=== PATIENT | male | born 2000 | race Caucasian/White ===

== ENCOUNTER 2020-05-02 02:27 | Inpatient (IN) ==
--- NOTE | 2020-05-02 02:50 | Emergency Department Note ---
Impression & Plan Suicidal ideation, Depression ED Provider Note Name: RAFAEL VILLEGAS Age: 19 Sex: M Arrives Via: Walk-In Informant: Patient, Mother ED Provider: Ruddy Aguayo MD Chief Complaint: Suicidal Ideation Impression: Suicidal Ideation Depression Medical Decision Makin yr old male with history Ulcerative Colitis with acute suicidal ideation in setting of depression set off by seeing ex girlfriend. Initially without reported plan but admits to case management he has plan. He looks well andappears a bit intoxicated though ETOH negative and suspect this was more him being very sad/crying and upset than intoxicated. He is awake, alert oriented on exams. labs otherwise with some mild hyponatremia which I suspect is from him chugging water earlier as he doesn't recall ever having that before. After discussion with myself and case management his mother and he feel comfortable with hospitalization and he was accepted to [address] [place] [address] for further management. Prior Medical Record and Triage/Nursing Notes reviewed by Me Differentials: amongst other pathologies. Vital Signs: reviewed and remarkable for no significant abnormalities Interventions: none Labs:Reviewed and remarkable for mild hyponatremia Consults:mental health case management - psychiatric hospitalization Plan: Disposition:Hospitalization. Condition: Good Blood pressure:Normal.No Referral necessary Prescriptions:none PDMP: n/a History of Present Illness:19 yr old male with history anxiety, depression, and Ulcerative Colitis arrives for evaluation of suicidal ideation. Patient from [facility] and got back to [employer] [facility] [employer] [facility] where he is student 2 nights ago. This afternoon was drinking alcohol and smoking marijuana when he saw his ex girlfriend. This caused acute depression and sadness. As night went on he started having suicidal thoughts. No plan other than to just run away. Denies any attempt at harming self. Came to ED because he was very sad and worried he may harm himself. No previous suicidal attempts. Denies family suicide history. No medications prior to arrival. Nothing makes better, seeing girlfriend makes worse. ROS: See above HPI for pertinent positives & negatives. A total of 10 systems reviewed and were otherwise negative. Past Medical History:Ulcerative colitis, depression, anxiety Past Surgical History:None Family History:Denies medical issues Social History:[employer] [facility] Student, ETOH occasionally, Previous tobacco/nicotine, occasional marijuana Home Medications:Mesalamine Allergies:knda Vitals:Blood Pressure: 129/74, Pulse 82, RR 19, T 36.6C, O2 96% on RA Physical Exam: GENERAL: Patient is sad appearing and in minimal distress. Slightly intoxicated EYES: No scleral icterus, unremarkable pupils. ENT: Mucous membranes moist, no nasal congestion. NECK: No masses appreciated, nomeningismus, trachea is midline. RESPIRATORY: No dyspnea. Clear to auscultation and equal bilaterally. No wheeze, no rhonchi. CARDIOVASCULAR: Regular rate and rhythm.No murmurs, rubs, gallops appreciated. GASTROINTESTINAL: Abdomen soft, non-tender, no peritonitis.Bowel sounds positive.No masses appreciated. BACK: No midline tenderness, no CVA tenderness EXTREMITIES: Normal motion all extremities, no cyanosis, no edema. NEUROLOGIC: Alert and oriented, no acute motor or sensory deficits, no focal weakness, cranial nerves grossly intact. SKIN: No rash, no jaundice, no diaphoresis. PSYCH: Sad, crying, depressed, admits suicidal thoughts without plan GCS: 15 ED Course: Times/Reassessments: stable Ruddy Aguayo MD Past Med/Surg History Social History Smoking Status: Current some day smoker Tobacco Type: E-cigarettes / Vaping Feels Safe at Home: Yes Allergies Allergies Allergy/AdvReac Type Severity Reaction Status Date / Time No Known Allergies Allergy Unverified 05/02/20 02:50 Results & Data (ED) Vital Signs Vital Signs - 24 hr 05/02/20 02:31 Temperature 36.6 C Temperature Source Oral Pulse Rate 82 Respiratory Rate 19 Blood Pressure 129/74 Blood Pressure Mean 92 Pulse Oximetry 96 Sepsis Recent Fever Within 48 Hours No Sepsis New/Unexplained Change in Mental Status N/A Sepsis Action Taken by Nursing No Action Required Laboratory Data Result diagrams: 05/02/20 03:13 05/02/20 03:13 Lab Results 05/02/20 05/02/20 05/02/20 Range/Units 02:38 02:38 03:13 WBC 11.25 H (4.8-10.8) K/uL RBC 4.35 L (4.7-6.1) M/uL Hgb 13.0 L (14.0-18.0) g/dL Hct 38.0 L (42-52) % MCV 87.4 (80-100) fL MCH 29.9 (25-34) pg MCHC 34.2 (32-36) g/dL RDW Std Deviation 42.3 (36.4-46.3) fL RDW Coeff of Nichole 13.1 (11.5-14.5) % Plt Count 218 (130-400) K/uL MPV 10.3 (7.4-10.4) fL Immature Gran % (Auto) 0.2 % Neut % (Auto) 85.4 % Lymph % (Auto) 9.8 % [place] % (Auto) 4.5 % Eos % (Auto) 0.0 % Baso % (Auto) 0.1 % Neut # (Auto) 9.61 H (1.4-6.5) K/uL Lymph # (Auto) 1.10 L (1.2-3.4) K/uL [place] # (Auto) 0.51 (0.11-0.59) K/uL Eos # (Auto) 0.00 (0-0.5) K/uL Baso # (Auto) 0.01 (0-0.2) K/uL Immature Gran # (Auto) 0.02 (0.00-0.02) K/uL Sodium (136-145) mmol/L Potassium (3.5-5.1) mmol/L Chloride (98-107) mmol/L Carbon Dioxide (21-32) mmol/L Anion Gap (3-11) BUN (7-18) mg/dl Creatinine (0.6-1.4) mg/dl Est Cr Clr Drug Dosing ml/min Est GFR ( Amer) Est GFR (Non-Af Amer) BUN/Creatinine Ratio (10-20) Glucose (70-99) mg/dl Calcium (8.5-10.1) mg/dl Total Bilirubin (0.2-1) mg/dl AST (15-37) U/L ALT (12-78) U/L Alkaline Phosphatase (45-117) U/L Total Protein (6.4-8.2) gm/dl Albumin (3.4-5.0) gm/dl Globulin (2.5-4.0) gm/dl Albumin/Globulin Ratio (0.9-2) TSH (0.300-4.500) uIu/ml Urine Color Yellow Urine Appearance Clear (Clear) Urine pH 5.0 (4.5-7.5) Ur Specific [place] 1.023 (1.000-1.030) Urine Protein Negative (Negative) Urine Glucose (UA) Negative (Negative) Urine Ketones Trace H (Negative) Urine Blood Negative (Negative) Urine Nitrite Negative (Negative) Urine Bilirubin Negative (Negative) Urine Urobilinogen Negative (Negative) Ur Leukocyte Esterase Negative (Negative) Salicylates (2.8-20) mg/dl Urine Opiates Screen Neg (Neg) Ur Methadone, Qual Neg (Neg) Acetaminophen (10-30) ug/ml Urine Barbiturates Neg (Neg) Ur Phencyclidine (PCP) Neg (Neg) U Amphetamin/Meth Scrn Neg (Neg) MDMA (Ecstasy) Screen Neg (Neg) U Benzodiazepines Scrn Neg (Neg) Ur Cocaine Metabolite Neg (Neg) U Marijuana (THC) Screen Neg (Neg) Ethyl Alcohol mg/dL (0-3) mg/dl 05/02/20 05/02/20 05/02/20 Range/Units 03:13 03:13 03:13 WBC (4.8-10.8) K/uL RBC (4.7-6.1) M/uL Hgb (14.0-18.0) g/dL Hct (42-52) % MCV (80-100) fL MCH (25-34) pg MCHC (32-36) g/dL RDW Std Deviation (36.4-46.3) fL RDW Coeff of Nichole (11.5-14.5) % Plt Count (130-400) K/uL MPV (7.4-10.4) fL Immature Gran % (Auto) % Neut % (Auto) % Lymph % (Auto) % [place] % (Auto) % Eos % (Auto) % Baso % (Auto) % Neut # (Auto) (1.4-6.5) K/uL Lymph # (Auto) (1.2-3.4) K/uL [place] # (Auto) (0.11-0.59) K/uL Eos # (Auto) (0-0.5) K/uL Baso # (Auto) (0-0.2) K/uL Immature Gran # (Auto) (0.00-0.02) K/uL Sodium 128 L (136-145) mmol/L Potassium 3.4 L (3.5-5.1) mmol/L Chloride 96 L (98-107) mmol/L Carbon Dioxide 24 (21-32) mmol/L Anion Gap 8.0 (3-11) BUN 14 (7-18) mg/dl Creatinine 0.82 (0.6-1.4) mg/dl Est Cr Clr Drug Dosing 129.5 ml/min Est GFR ( Amer) 147.5 Est GFR (Non-Af Amer) 127.3 BUN/Creatinine Ratio 17.3 (10-20) Glucose 102 H (70-99) mg/dl Calcium 8.5 (8.5-10.1) mg/dl Total Bilirubin 0.7 (0.2-1) mg/dl AST 30 (15-37) U/L ALT 34 (12-78) U/L Alkaline Phosphatase 117 (45-117) U/L Total Protein 7.5 (6.4-8.2) gm/dl Albumin 4.0 (3.4-5.0) gm/dl Globulin 3.5 (2.5-4.0) gm/dl Albumin/Globulin Ratio 1.1 (0.9-2) TSH 1.230 (0.300-4.500) uIu/ml Urine Color Urine Appearance (Clear) Urine pH (4.5-7.5) Ur Specific [place] (1.000-1.030) Urine Protein (Negative) Urine Glucose (UA) (Negative) Urine Ketones (Negative) Urine Blood (Negative) Urine Nitrite (Negative) Urine Bilirubin (Negative) Urine Urobilinogen (Negative) Ur Leukocyte Esterase (Negative) Salicylates < 1.7 L (2.8-20) mg/dl Urine Opiates Screen (Neg) Ur Methadone, Qual (Neg) Acetaminophen < 2 L (10-30) ug/ml Urine Barbiturates (Neg) Ur Phencyclidine (PCP) (Neg) U Amphetamin/Meth Scrn (Neg) MDMA (Ecstasy) Screen (Neg) U Benzodiazepines Scrn (Neg) Ur Cocaine Metabolite (Neg) U Marijuana (THC) Screen (Neg) Ethyl Alcohol mg/dL < 3.0 (0-3) mg/dl Discharge Plan Visit Data Chief Complaint: Mental Health Evaluation Stated Complaint: MENTAL HEALTH ED Provider: Ruddy Aguayo Discharge Problem: Suicidal ideation, Depression Patient Disposition: Admitted As Inpatient Discharge Instructions Interventions: ED Discharge Assessment Last Done: 05/02/20 06:37 Discharge Problem: Depression Qualifiers: Depression Type: reactive depression Qualified Code(s): F32.9 - Major depressive disorder, single episode, unspecified
[2020-05-02 03:12] LABS: Appearance Urine Clear (Clear); Bilirubin Urine Negative (Negative); Blood Urine Negative (Negative); Color Urine Yellow; Glucose Urine UA Negative (Negative); Ketones Urine Trace (Negative); Leukocyte Esterase Urine Negative (Negative); Nitrite Urine Negative (Negative); Protein Urine Negative (Negative); Specific Gravity Urine 1.023 (1.000-1.030); Urobilinogen Urine Negative (Negative)
[2020-05-02 03:37] LABS: Basophils # (auto) 0.01 K/uL (0-0.2); Basophils % (auto) 0.1 %; Immature Granulocytes # (auto) 0.02 K/uL (0.00-0.02); Immature Granulocytes % (auto) 0.2 %; Lymphocytes % (auto) 9.8 %; Mean Corpuscular Hemoglobin 29.9 pg (25-34); Mean Corpuscular Hgb Conc 34.2 g/dL (32-36); Mean Corpuscular Volume 87.4 fL (80-100); Mean Platelet Volume 10.3 fL (7.4-10.4); Monocytes # (auto) 0.51 K/uL (0.11-0.59); Monocytes % (auto) 4.5 %; Neutrophils # (auto) 9.61 K/uL (1.4-6.5); Neutrophils % (auto) 85.4 %; Platelet Count 218 K/uL (130-400); RDW Coefficient of Variation 13.1 % (11.5-14.5); RDW Standard Deviation 42.3 fL (36.4-46.3); Red Blood Count 4.35 M/uL (4.7-6.1); White Blood Count 11.25 K/uL (4.8-10.8)
[2020-05-02 03:56] LABS: BUN Creatinine Ratio 17.3 (10-20); Calcium 8.5 mg/dl (8.5-10.1); Creatinine Clr Calc Pharmacy 129.5 ml/min; Est GFR (African American) 147.5; Est GFR (Non-African American) 127.3; Potassium 3.4 mmol/L (3.5-5.1)
[2020-05-02 03:58] LABS: Amphetamines+Metham, Urine Neg (Neg); Barbiturates, Urine Neg (Neg); Benzodiazepine, Urine Neg (Neg); Cocaine, Urine Neg (Neg); MDMA (Ecstacy), Urine Neg (Neg); Methadone, Urine Neg (Neg); Opiate, Urine Neg (Neg); Phencyclidine, Urine Neg (Neg)
[2020-05-02 04:06] LABS: Albumin Globulin Ratio 1.1 (0.9-2); Bilirubin,Total 0.7 mg/dl (0.2-1); Globulin 3.5 gm/dl (2.5-4.0); Thyroid Stimulating Hormone 1.23 uIu/ml (0.300-4.500); Total Protein 7.5 gm/dl (6.4-8.2)
[2020-05-02 04:07] LABS: Acetaminophen < 2 ug/ml (10-30)
[2020-05-02 04:08] LABS: Salicylate < 1.7 mg/dl (2.8-20)
[2020-05-02] MEDS ORDERED: ALUMINUM/MAGNESIUM SUSP 30 ML UDC PO PRN (06:01)
[2020-05-02] MEDS ORDERED: ACETAMINOPHEN 325 MG TAB PO PRN (06:01)
[2020-05-02] MEDS ORDERED: SODIUM CHLORIDE 0.65% NA SOLN 45 ML (OCEAN) PRN (06:01)
[2020-05-02] MEDS ORDERED: MAGNESIUM HYDROXIDE SUSP 30 ML UDC PO PRN (06:01)
[2020-05-02] MEDS ORDERED: BISMUTH SUBSALICYLATE PER ML OMNICELL CHARGE PO PRN (06:01)
--- NOTE | 2020-05-02 12:33 | History & Physical ---
Date of Service May 02, 2020 Impression / Recommendations Impression 19 yo male with a history of depressed mood "on and off" for months, adjustment issues on return to campus due to social anxiety and Covid fears (doesn't want to make grandparents sick) culminating in binge drinking triggered by interaction with ex-girlfriend. He reportedly drank a large volume of water, seemingly to negate tox results, prior to coming to ED for SI with plan. (1) Depression: The patient was admitted to the [facility] ([facility] unit) on q15 min checks (behavioral with suicide precautions) for safety. The patient will participate in group, recreational, and milieu therapies and will be offered additional individual and family sessions as clinically appropriate. Patient states he is willing to consider outpatient therapy services but "I don't want to take pills". Depression Type: reactive depression Qualified Code(s): F32.9 - Major depressive disorder, single episode, unspecified (2) Hyponatremia: doubt true psychogenic polydipsia as not persistent, repeat sodium this pm and monitor for need for fluid restriction. (3) Ulcerative (chronic) enterocolitis: continue home sulfasalazine regimen Risk Factors Assessment Do You Have Access To A Gun?: No Protective Factors Assessment Employed: No Psychiatric History Identifying Data RAFAEL VILLEGAS is a 19-year-old , U go from [facility] [employer]) who just returned to campus to live with roommates, no formal psych hx, and was admitted on 05/02/20 06:01 on a 201 voluntary commitment for SI. Chief Complaint "I went out with my friends thinking I could handle seeing my ex-girlfriend but I went to a dark place". History of Present Illness Horace states that he started to have passive SI while intoxicated, can't quantify how much he drank, progressed to plan to stab or cut himself. He feels like he can behave "impulsively" when upset, when asked to elaborate his example was "giving up on a class when I probably could have pulled a decent grade". He admittedly over-thinks things and has chronic self-deprecating thoughts. He expresses social anxiety, the constant feeling that he doesn't fit in or that others are judging him. He doesn't feel as close to friends anymore and says "I'm different". An example being that he likes to surf and most of his friends prefer basketball. He had described some irritability but no evidence of don or explosiveness, "I wouldn't want to break my stuff". He doesn't note consistent changes in his sleep/appetite/or energy. With regards to transition back to campus, sounds like he did not do well in a summer course (Calc 2) but mainly because 2 years since he took calculus. He relates well overall to his parents who are still in town after dropping him off. He states he didn't reach out to them as wants to be more independent and mother can be overprotective. He alluded to using MJ earlier in the evening and states that he has drank "a bunch of water before" when intoxicated to sober up. He denies excessive water drinking per se. He admits to "chugging" 4-5 Truly's and then 10 bottled capps prior to coming to ED. States that he wasn't feeling better and was worried he might act on those thoughts. Sodium in ED was 128. Past Psychiatric History Previous Psych History: past therapy, unclear how many sessions Current Psychiatric Diagnosis: none Outpatient Services: none Previous Psych Admissions: none Do You Have Access To A Gun?: No History of Previous Suicide Attempt: No Past Medication Trials: none Past Head Trauma/Neuro History History of Concussion/Seizure: Yes (estimates 4-5 concussions from high school soccer) Allergies Allergy/AdvReac Type Severity Reaction Status Date / Time No Known Allergies Allergy Unverified 05/02/20 02:50 Home Medications Home Medications Medication Instructions Recorded Confirmed Type sulfasalazine 500 mg PO QID 05/02/20 05/02/20 History Family History Family History of: Depression and Anxiety Family Mental Health History Comment: Maternal grandmother with depression. Mother with anxiety. Alcohol History Hx of Alcohol Use Over the Past 12 Months: Yes (Drank last night.) AUDIT Total Score: 2 Smoking Use Have You Smoked or Used Tobacco Products in the Last 30 Days: Yes Smoking Status: Current some day smoker Substance History Hx of Prescription Med Misuse Over the Past 12 Months: No Hx of Over the Counter Med Misuse Over the Past 12 Months: No Hx of Inhalent Misuse Over the Past 12 Months: No Hx of Organic Substance Use Over the Past 12 Months: Yes (Marijuana) Hx of Illegal Substances/Street Drug Use Over Past 12 Months: No Problems as a Result of Past Substance Use: None Identified Personal History Living Arrangements: Apartment Highest Grade Completed: Some College ([employer]) Employment Status: Student Number Of Children: none Beliefs That Will Affect Care: None Hx Legal Problems: No Psychological Trauma History Comment: denied Patient History Medical History (Updated 05/02/20 @ 12:31 by Anais Pat MD) Ulcerative (chronic) enterocolitis Social History Smoking Status: Current some day smoker Tobacco Type: E-cigarettes / Vaping Beliefs That Will Affect Care: None Feels Safe at Home: Yes Review of Systems Review of Systems: All systems reviewed & are unremarkable except as noted in HPI & below Physical Exam Psychiatric: Orientation: alert Apperance: appropriately dressed and appropriately groomed Eye Contact: good eye contact Motor Behavior: no abnormal motor movements Speech: normal rate/rhythm/volume of speech Affect: + depressed affect Mood: + depressed mood Thought Process: linear/logical thought process Thought Content: reality based without delusions Suicidal Thoughts: denies suicidal thoughts but "just not sure I wouldn't" Homicidal Thoughts: denies homicidal thoughts Hallucinations: no auditory hallucinations and no visual hallucinations Cognition: attention grossly intact and language grossly intact Insight: + limited insight Judgement: + limited judgement Vital Signs (Past 24 Hours): Last Vital Signs Temp 36.6 C 05/02/20 07:40 Pulse 82 05/02/20 07:40 Resp 18 05/02/20 07:40 BP 122/60 05/02/20 07:40 Pulse Ox 97 05/02/20 06:22 Exam Statement: A physical exam was performed in the ED by Dr. Aguayo for the purposes of medical clearance. I accept that physical as correct and adequate for the purposes of the inpatient physical exam. Results & Data ([facility]) Laboratory Results Laboratory Results - last 24 hr 05/02/20 05/02/20 05/02/20 02:38 02:38 03:13 WBC 11.25 H RBC 4.35 L Hgb 13.0 L Hct 38.0 L MCV 87.4 MCH 29.9 MCHC 34.2 RDW Std Deviation 42.3 RDW Coeff of Nichole 13.1 Plt Count 218 MPV 10.3 Immature Gran % (Auto) 0.2 Neut % (Auto) 85.4 Lymph % (Auto) 9.8 [place] % (Auto) 4.5 Eos % (Auto) 0.0 Baso % (Auto) 0.1 Neut # (Auto) 9.61 H Lymph # (Auto) 1.10 L [place] # (Auto) 0.51 Eos # (Auto) 0.00 Baso # (Auto) 0.01 Immature Gran # (Auto) 0.02 Sodium Potassium Chloride Carbon Dioxide Anion Gap BUN Creatinine Est Cr Clr Drug Dosing Est GFR ( Amer) Est GFR (Non-Af Amer) BUN/Creatinine Ratio Glucose Calcium Total Bilirubin AST ALT Alkaline Phosphatase Total Protein Albumin Globulin Albumin/Globulin Ratio TSH Urine Color Yellow Urine Appearance Clear Urine pH 5.0 Ur Specific [place] 1.023 Urine Protein Negative Urine Glucose (UA) Negative Urine Ketones Trace H Urine Blood Negative Urine Nitrite Negative Urine Bilirubin Negative Urine Urobilinogen Negative Ur Leukocyte Esterase Negative Salicylates Urine Opiates Screen Neg Ur Methadone, Qual Neg Acetaminophen Urine Barbiturates Neg Ur Phencyclidine (PCP) Neg U Amphetamin/Meth Scrn Neg MDMA (Ecstasy) Screen Neg U Benzodiazepines Scrn Neg Ur Cocaine Metabolite Neg U Marijuana (THC) Screen Neg Ethyl Alcohol mg/dL 05/02/20 05/02/20 05/02/20 03:13 03:13 03:13 WBC RBC Hgb Hct MCV MCH MCHC RDW Std Deviation RDW Coeff of Nichole Plt Count MPV Immature Gran % (Auto) Neut % (Auto) Lymph % (Auto) [place] % (Auto) Eos % (Auto) Baso % (Auto) Neut # (Auto) Lymph # (Auto) [place] # (Auto) Eos # (Auto) Baso # (Auto) Immature Gran # (Auto) Sodium 128 L Potassium 3.4 L Chloride 96 L Carbon Dioxide 24 Anion Gap 8.0 BUN 14 Creatinine 0.82 Est Cr Clr Drug Dosing 129.5 Est GFR ( Amer) 147.5 Est GFR (Non-Af Amer) 127.3 BUN/Creatinine Ratio 17.3 Glucose 102 H Calcium 8.5 Total Bilirubin 0.7 AST 30 ALT 34 Alkaline Phosphatase 117 Total Protein 7.5 Albumin 4.0 Globulin 3.5 Albumin/Globulin Ratio 1.1 TSH 1.230 Urine Color Urine Appearance Urine pH Ur Specific [place] Urine Protein Urine Glucose (UA) Urine Ketones Urine Blood Urine Nitrite Urine Bilirubin Urine Urobilinogen Ur Leukocyte Esterase Salicylates < 1.7 L Urine Opiates Screen Ur Methadone, Qual Acetaminophen < 2 L Urine Barbiturates Ur Phencyclidine (PCP) U Amphetamin/Meth Scrn MDMA (Ecstasy) Screen U Benzodiazepines Scrn Ur Cocaine Metabolite U Marijuana (THC) Screen Ethyl Alcohol mg/dL < 3.0 Current Inpatient Medications Current Inpatient Medications: Current Inpatient Medications Acetaminophen (Acetaminophen 325 Mg Tab) 650 mg PO Q4H PRN PRN Reason: Headache or Minor Fever Stop: 06/01/20 06:00 Al Hydrox/Mg Hydrox/Simethicone (Aluminum/Magnesium Susp 30 Ml Udc) 30 ml PO Q4H PRN PRN Reason: GI Upset Stop: 06/01/20 06:00 Bismuth Subsalicylate (Bismuth Subsalicylate Per Ml Omnicell Charge) 15 ml PO PRN PRN PRN Reason: Loose Stool Stop: 06/01/20 06:00 Hydroxyzine HCl (Hydroxyzine Hcl 25 Mg Tab) 50 mg PO HSZ PRN PRN Reason: Insomnia Stop: 06/01/20 06:00 Hydroxyzine HCl (Hydroxyzine Hcl 25 Mg Tab) 25 mg PO Q4H PRN PRN Reason: Anxiety Stop: 06/01/20 06:00 Magnesium Hydroxide (Magnesium Hydroxide Susp 30 Ml Udc) 30 ml PO DAILY PRN PRN Reason: Constipation Stop: 06/01/20 06:00 Sodium Chloride (Sodium Chloride 0.65% Na Soln 45 Ml ([place])) 1 - 2 sprays NA PRN PRN PRN Reason: Nasal Dryness/Congestion Stop: 06/01/20 06:00
[2020-05-02 13:29] LABS: Potassium 3.6 mmol/L (3.5-5.1)
[2020-05-02] MEDS: sulfaSALAzine 500 MG TABLET PO SCH ×3 (13:57→21:08)
[2020-05-03] MEDS: sulfaSALAzine 500 MG TABLET PO SCH ×4 (09:29→21:30)
--- NOTE | 2020-05-03 13:48 | Psychiatric Progress Note ---
Date of Service May 03, 2020 Impression / Recommendations Impression 19 yo male with a history of depressed mood "on and off" for months, adjustment issues on return to campus due to social anxiety and Covid fears (doesn't want to make grandparents sick) culminating in binge drinking triggered by interaction with ex-girlfriend. He reportedly drank a large volume of water, seemingly to negate tox results, prior to coming to ED for SI with plan. Pt has consistently declined opportunity to trial an antidepressant medication, with reported preference to focus on therapy initially. Pt is agreeable to a family meeting with parents. Pt remains at risk of decompensation and acute self-harm if discharged prematurely. (1) Depression: 05/02 - The patient was admitted to the [facility] ([facility] mental [facility] unit) on q15 min checks (behavioral with suicide precautions) for safety. The patient will participate in group, recreational, and milieu therapies and will be offered additional individual and family sessions as clinically appropriate. Patient states he is willing to consider outpatient therapy services but "I don't want to take pills". 05/03 - Pt continues to report he is not interested in psychotropic medications - we discussed numerous examples of reasons this conversation may warrant further discussion (worsening mood/anxiety, feeling therapy is not progressing, recurrence of SI, etc). Pt verbalized understanding - Refer to [facility] for therapy - Schedule family meeting with parents - Schedule appointment with [facility] (2) Hyponatremia: doubt true psychogenic polydipsia as not persistent, repeat sodium this pm and monitor for need for fluid restriction. 05/03--repeat sodium improved at 136, patient observed to be eating and drinking appropriately (3) Ulcerative (chronic) enterocolitis: continue home sulfasalazine regimen Risk Factors Assessment Do You Have Access To A Gun?: No Protective Factors Assessment Employed: No Interval History Identifying Information RAFEAL VILLEGAS is a 19-year-old , [employer] go from [facility]) who just returned to campus to live with roommates, no formal psych hx, and was admitted on 05/02/20 06:01 on a 201 voluntary commitment for SI. Chief Complaint "Um, a little better today." Review of Systems Notes Constitutional: denied Cardiovascular: denied Respiratory: denied Gastrointestinal: GI symptoms consistent with UC diagnosis Neurological: denied Psychiatric: denies symptoms other than stated above Total of at least 10 systems reviewed, pertinent positives as above and in HPI. Sleep Information Total Hours of Sleep: 5.25 Sleep Comments: pt on q-15 minute checks Meal Information Percent Meal Consumed - Breakfast: 0 Percent Meal Consumed - Lunch: 75 Percent Meal Consumed - Dinner: 10 Nutrition Comment: pt. asleep; meal dated, labeled and refrigerated Subjective Subjective Patient was seen & assessed and interval progress reviewed with treatment team. Staff report the patient has been attending group programming. He was reportedly emotional yesterday, but attended group programming. He rated his mood a 5/10 and "lost" last evening. Pt was seen today to assess progress since admission. Pt states he is "a little better today." Pt admits that he was feeling overwhelmed with the transition back to school and has been struggling with "some pretty big things I'd love to have answers to, but I know I won't for a while." Pt shares that in particular he has been struggling with a previous girlfriend cheating on him, and feeling "like I can't trust anyone, I want a relationship, but it's really hard." Pt continues to request only a therapy referral when discharged, as he continues to worry that medications will affect his ulcerative colitis. We discussed that antidepressants can have some temporary GI side effects, but it is anticipated this would resolve. Pt reports specific concerns about "addictive" medications. He was provided with education regarding SSRIs and difference between more habit forming medications such as benzodiazepines. We also discussed expectation that patient would likely not require these medications oysterman. He seemed open to at least involving his new outpatient therapist in future discussions about medications, but is declining at this time to start something. He denies SI today, admitting "when I came in, it was like I wanted to run away. Get a one-way ticket out of here." He admits those feelings are not as strong today. Pt feels as though he is benefitting from group programming thus far. He is agreeable to a family meeting with parents. He is curious about therapy services during breaks and massey, as "the transitions home are generally rough." He is aware of referral to [facility] and [facility] at this time. Pt denied other needs or concerns presently. Physical Exam Psychiatric Orientation: alert, oriented x 3 and cooperative (timid, but pleasant) Apperance: appropriately dressed (casually, in t-shirt and gym shorts), appropriately groomed and appeared stated age Eye Contact: + fair eye contact (presents as shy/timid, avoiding direct eye contact at times) Motor Behavior: steady gait and station and no abnormal motor movements Speech: normal rate/rhythm/volume of speech Affect: + depressed affect, + anxious affect and mood congruent with affect Mood: + depressed mood and + anxious mood Thought Process: goal directed thought process, clear/coherent thought process and thought association intact Thought Content: reality based without delusions, + hopelessness and + loneliness Suicidal Thoughts: denies suicidal thoughts and denies suicidal intent Homicidal Thoughts: denies homicidal thoughts Hallucinations: no auditory hallucinations and no visual hallucinations Cognition: recent memory grossly intact, attention grossly intact and language grossly intact Estimated Intelligence: consistent with education level Insight: + fair insight Judgement: + fair judgement Vital Signs (Past 24 Hours) Last Vital Signs Temp 36.6 C 05/03/20 06:49 Pulse 75 05/03/20 06:49 Resp 18 05/03/20 06:49 BP 122/64 05/03/20 06:49 Pulse Ox 97 05/02/20 06:22 Results & Data ([facility]) Current Inpatient Medications Current Inpatient Medications: Current Inpatient Medications Acetaminophen (Acetaminophen 325 Mg Tab) 650 mg PO Q4H PRN PRN Reason: Headache or Minor Fever Stop: 06/01/20 06:00 Al Hydrox/Mg Hydrox/Simethicone (Aluminum/Magnesium Susp 30 Ml Udc) 30 ml PO Q4H PRN PRN Reason: GI Upset Stop: 06/01/20 06:00 Bismuth Subsalicylate (Bismuth Subsalicylate Per Ml Omnicell Charge) 15 ml PO PRN PRN PRN Reason: Loose Stool Stop: 06/01/20 06:00 Hydroxyzine HCl (Hydroxyzine Hcl 25 Mg Tab) 50 mg PO HSZ PRN PRN Reason: Insomnia Stop: 06/01/20 06:00 Hydroxyzine HCl (Hydroxyzine Hcl 25 Mg Tab) 25 mg PO Q4H PRN PRN Reason: Anxiety Stop: 06/01/20 06:00 Magnesium Hydroxide (Magnesium Hydroxide Susp 30 Ml Udc) 30 ml PO DAILY PRN PRN Reason: Constipation Stop: 09/22/20 06:00 Sodium Chloride (Sodium Chloride 0.65% Na Soln 45 Ml ([place])) 1 - 2 sprays NA PRN PRN PRN Reason: Nasal Dryness/Congestion Stop: 06/01/20 06:00 Sulfasalazine (Sulfasalazine 500 Mg Tablet) 500 mg PO QID BURT Stop: 06/01/20 12:59 Last Admin: 05/03/20 12:41 Dose: 500 mg Documented by: Mental Health & Subst Abuse Tx Therapist Name of Therapist: SUDARSHAN Therapist's Therapy Appointment Comment: Telephone screening to assess for services Geothermal Hvac Technician Name of Geothermal Hvac Technician: [facility] Phone Number for Geothermal Hvac Technician: [phone] Case Management Appointment Comment: [address] Post Discharge Appointments Primary Care Physician Name Of Family Doctor: Ashley Primary Care Provider Appointment Comment: [facility] Contact Information Discharge Discharge Address: [address] [place] [address] (1) Depression Depression Type: reactive depression Qualified Code(s): F32.9 - Major depressive disorder, single episode, unspecified
--- NOTE | 2020-05-04 09:14 | Psychiatric Progress Note ---
Date of Service May 04, 2020 Impression / Recommendations Impression 19 yo male with a history of depressed mood "on and off" for months, adjustment issues on return to campus due to social anxiety and Covid fears (doesn't want to make grandparents sick) culminating in binge drinking triggered by interaction with ex-girlfriend. He reportedly drank a large volume of water, seemingly to negate tox results, prior to coming to ED for SI with plan. Pt has consistently declined opportunity to trial an antidepressant medication, with reported preference to focus on therapy initially. Pt is agreeable to a family meeting with parents. Pt remains at risk of decompensation and acute self-harm if discharged prematurely. (1) Depression: 05/02 - The patient was admitted to the [facility] ([facility] mental health unit) on q15 min checks (behavioral with suicide precautions) for safety. The patient will participate in group, recreational, and milieu therapies and will be offered additional individual and family sessions as clinically appropriate. Patient states he is willing to consider outpatient therapy services but "I don't want to take pills". 05/03 - Pt continues to report he is not interested in psychotropic medications - we discussed numerous examples of reasons this conversation may warrant further discussion (worsening mood/anxiety, feeling therapy is not progressing, recurrence of SI, etc). Pt verbalized understanding - Refer to [facility] for therapy - Schedule family meeting with parents - Schedule appointment with [facility] 05/04 - Continue as above. Pt continues to decline medications to target mood - Pt reports benefit from group programming - Schedule family meeting with parents - [facility] intake phone call today (2) Hyponatremia: doubt true psychogenic polydipsia as not persistent, repeat sodium this pm and monitor for need for fluid restriction. 05/03--repeat sodium improved at 136, patient observed to be eating and drinking appropriately (3) Ulcerative (chronic) enterocolitis: continue home sulfasalazine regimen Risk Factors Assessment Do You Have Access To A Gun?: No Protective Factors Assessment Employed: No Interval History Identifying Information RAFAEL VILLEGAS is a 19-year-old , [employer] go from [employer]) who just returned to campus to live with roommates, no formal psych hx, and was admitted on 05/02/20 06:01 on a 201 voluntary commitment for SI. Chief Complaint "Um, I'm ok. A little anxious, there's a lot of new people. I was more comfortable with the old people." Review of Systems Notes Constitutional: denied Cardiovascular: denied Respiratory: denied Gastrointestinal: denied Neurological: denied Psychiatric: denies symptoms other than stated above Total of at least 10 systems reviewed, pertinent positives as above and in HPI. Sleep Information Total Hours of Sleep: 5.5 Sleep Comments: pt on q-15 minute checks Meal Information Percent Meal Consumed - Breakfast: 0 Percent Meal Consumed - Lunch: 75 Percent Meal Consumed - Dinner: 70 Nutrition Comment: pt. asleep; meal dated, labeled and refrigerated Subjective Subjective Patient was seen & assessed and interval progress reviewed with nursing and social work. Staff report the patient has continued to attend group programming, rating his mood a 6-7/10 and "anxious, scared, and confused." Staff report the patient continues to appear flat and depressed. Pt was seen today to assess progress since admission. Pt states "Um, I'm ok. A little anxious, there's a lot of new people. I was more comfortable with the old people." Despite this comment, patient admits he is hoping to develop his personality to become more outgoing. He reports looking at the "assertiveness" topic in his patient work-book and found this to be very helpful. Pt states he is hoping to feel more comfortable opening up and "to be better at responding to people." Pt denies SI at this time. He continues to be agreeable with outpatient therapy as well as family meeting with parents - both of which still need scheduled. He denies other concerns presently. Physical Exam Psychiatric Orientation: alert, oriented x 3 and cooperative Apperance: appropriately dressed, appropriately groomed and appeared stated age Eye Contact: good eye contact Motor Behavior: steady gait and station and no abnormal motor movements Speech: normal rate/rhythm/volume of speech Affect: + depressed affect and + anxious affect Mood: + depressed mood and + anxious mood Thought Process: goal directed thought process and clear/coherent thought process Thought Content: reality based without delusions; no hopelessness and no worthlessness Suicidal Thoughts: denies suicidal thoughts and denies suicidal intent Homicidal Thoughts: denies homicidal thoughts Hallucinations: no auditory hallucinations and no visual hallucinations Cognition: recent memory grossly intact, attention grossly intact and language grossly intact Estimated Intelligence: consistent with education level Insight: + fair insight Judgement: + fair judgement Vital Signs (Past 24 Hours) Last Vital Signs Temp 36.7 C 05/04/20 06:42 Pulse 68 05/04/20 06:43 Resp 18 05/04/20 06:42 BP 108/57 L 05/04/20 06:43 Pulse Ox 97 05/02/20 06:22 Results & Data ([facility]) Current Inpatient Medications Current Inpatient Medications: Current Inpatient Medications Acetaminophen (Acetaminophen 325 Mg Tab) 650 mg PO Q4H PRN PRN Reason: Headache or Minor Fever Stop: 06/01/20 06:00 Al Hydrox/Mg Hydrox/Simethicone (Aluminum/Magnesium Susp 30 Ml Udc) 30 ml PO Q4H PRN PRN Reason: GI Upset Stop: 06/01/20 06:00 Bismuth Subsalicylate (Bismuth Subsalicylate Per Ml Omnicell Charge) 15 ml PO PRN PRN PRN Reason: Loose Stool Stop: 06/01/20 06:00 Hydroxyzine HCl (Hydroxyzine Hcl 25 Mg Tab) 50 mg PO HSZ PRN PRN Reason: Insomnia Stop: 06/01/20 06:00 Hydroxyzine HCl (Hydroxyzine Hcl 25 Mg Tab) 25 mg PO Q4H PRN PRN Reason: Anxiety Stop: 06/01/20 06:00 Magnesium Hydroxide (Magnesium Hydroxide Susp 30 Ml Udc) 30 ml PO DAILY PRN PRN Reason: Constipation Stop: 06/01/20 06:00 Sodium Chloride (Sodium Chloride 0.65% Na Soln 45 Ml ([place])) 1 - 2 sprays NA PRN PRN PRN Reason: Nasal Dryness/Congestion Stop: 06/01/20 06:00 Sulfasalazine (Sulfasalazine 500 Mg Tablet) 500 mg PO QID BURT Stop: 06/01/20 12:59 Last Admin: 05/03/20 21:30 Dose: 500 mg Documented by: Mental Health & Subst Abuse Tx Therapist Name of Therapist: SUDARSHAN Therapist's Therapy Appointment Comment: Telephone screening to assess for services Clinical Educator Name of Clinical Educator: [facility] Phone Number for Clinical Educator: [phone] Case Management Appointment Comment: [address] [facility] Post Discharge Appointments Primary Care Physician Name Of Family Doctor: [facility] Primary Care Provider Appointment [facility]: [facility] Contact Information Discharge Discharge Address: [address] [place] [address] (1) Depression Depression Type: reactive depression Qualified Code(s): F32.9 - Major depressive disorder, single episode, unspecified
[2020-05-04] MEDS: sulfaSALAzine 500 MG TABLET PO SCH ×4 (10:21→21:55)
[2020-05-05] MEDS: sulfaSALAzine 500 MG TABLET PO SCH ×4 (08:59→21:01)
--- NOTE | 2020-05-05 11:07 | Psychiatric Progress Note ---
Date of Service May 05, 2020 Impression / Recommendations Impression 19 yo male with a history of depressed mood "on and off" for months, adjustment issues on return to campus due to social anxiety and Covid fears (doesn't want to make grandparents sick) culminating in binge drinking triggered by interaction with ex-girlfriend. He reportedly drank a large volume of water, seemingly to negate tox results, prior to coming to ED for SI with plan. Pt has consistently declined opportunity to trial an antidepressant medication, with reported preference to focus on therapy initially. Pt is agreeable to a family meeting with parents. Pt remains at risk of decompensation and acute self-harm if discharged prematurely. (1) Depression: 05/02 - The patient was admitted to the [facility] ([facility]) on q15 min checks (behavioral with suicide precautions) for safety. The patient will participate in group, recreational, and milieu therapies and will be offered additional individual and family sessions as clinically appropriate. Patient states he is willing to consider outpatient therapy services but "I don't want to take pills". 05/03 - Pt continues to report he is not interested in psychotropic medications - we discussed numerous examples of reasons this conversation may warrant further discussion (worsening mood/anxiety, feeling therapy is not progressing, recurrence of SI, etc). Pt verbalized understanding - Refer to [facility] for therapy - Schedule family meeting with parents - Schedule appointment with [facility] 05/04 - Continue as above. Pt continues to decline medications to target mood - Pt reports benefit from group programming - Schedule family meeting with parents - [facility] intake phone call today 05/05 - Continue as above - Family meeting with parents today - Pt requesting a separate meeting with roommates to discuss his recent mental health struggles and coordinate supports - [facility] intake call completed yesterday, waiting for formal appointment to be scheduled (2) Hyponatremia: doubt true psychogenic polydipsia as not persistent, repeat sodium this pm and monitor for need for fluid restriction. 05/03--repeat sodium improved at 136, patient observed to be eating and drinking appropriately (3) Ulcerative (chronic) enterocolitis: continue home sulfasalazine regimen Risk Factors Assessment Do You Have Access To A Gun?: No Protective Factors Assessment Employed: No Interval History Identifying Information RAFAEL VILLEGAS is a 19-year-old , [employer] go from [employer]) who just returned to campus to live with roommates, no formal psych hx, and was admitted on 05/02/20 06:01 on a 201 voluntary commitment for SI. Chief Complaint "Alright, I had a lot to think about last night." Review of Systems Notes Constitutional: denied Cardiovascular: denied Respiratory: denied Gastrointestinal: reports nausea Neurological: denied Psychiatric: denies symptoms other than stated above Total of at least 10 systems reviewed, pertinent positives as above and in HPI. Sleep Information Total Hours of Sleep: 5.5 Sleep Comments: pt on q-15 minute checks Meal Information Percent Meal Consumed - Breakfast: 100 Percent Meal Consumed - Lunch: 100 Percent Meal Consumed - Dinner: 100 Nutrition Comment: pt. asleep; meal dated, labeled and refrigerated Subjective Subjective Patient was seen & assessed and interval progress reviewed with treatment team. Staff report the patient has been participating in group programming. It was reported that patient was preoccupied with thoughts related to past conversations, belief that he makes "mean" or "selfish" comments at times. Pt is open for a family meeting, which will hopefully be scheduled for this morning/afternoon. Pt was seen today to assess progress since admission. Pt states he is "alright" and reports "I had a lot to think about last night." Pt reports he was dealing with thoughts of feeling "selfish, like I come off as standoffish. Saying things that hurt people." Pt was unable to provide any specific examples of these situations, but did have a 1:1 session with staff last evening to process these distorted views of himself. Pt reports acknowledging that this is a "distorted reality" - citing a book on [employer] that he is reading. He states he is hoping to continue to work on ways to be more kind and process thoughts before he says something that may be mean or hurtful. Pt states that he is not particularly anxious about his meeting, but he is hopeful to discuss ways that his parents could provide him with "more independence." We did discuss that there are times that supports may feel the need to check in more frequently after hospitalizations such as this, and that discussing compromises that allow patient to retain independence while also respecting parent's level of concern will be helpful. Pt denies active SI, but did admit to increased thoughts to "run away" (same description of SI /hopelessness reported during initial presentation) last evening while attempting to process thoughts that he is not as good of a person as he has told himself he is. Pt admits talks with staff have been helpful for this. He denies other needs or concerns today. Physical Exam Psychiatric Orientation: alert, oriented x 3 and cooperative Apperance: appropriately dressed, appropriately groomed and appeared stated age Eye Contact: + fair eye contact Motor Behavior: steady gait and station and no abnormal motor movements Speech: normal rate/rhythm/volume of speech (somewhat brief responses to questions) Affect: + anxious affect (timid) and + constricted affect Mood: + anxious mood Thought Process: goal directed thought process and clear/coherent thought process Thought Content: + preoccupation (ruminations related to past conversations, views comments as "mean/selfish") and + cognitive distortions (able to recognize some of these); no hopelessness Suicidal Thoughts: denies suicidal thoughts (but does report thoughts last evening to "run away") Homicidal Thoughts: denies homicidal thoughts Hallucinations: no auditory hallucinations and no visual hallucinations Cognition: recent memory grossly intact, attention grossly intact and language grossly intact Estimated Intelligence: consistent with education level Insight: + fair insight Judgement: + fair judgement Vital Signs (Past 24 Hours) Last Vital Signs Temp 36.7 C 05/05/20 06:47 Pulse 67 05/05/20 06:48 Resp 18 05/05/20 06:47 BP 112/74 05/05/20 06:48 Pulse Ox 97 05/02/20 06:22 Results & Data ([facility]) Current Inpatient Medications Current Inpatient Medications: Current Inpatient Medications Acetaminophen (Acetaminophen 325 Mg Tab) 650 mg PO Q4H PRN PRN Reason: Headache or Minor Fever Stop: 06/01/20 06:00 Al Hydrox/Mg Hydrox/Simethicone (Aluminum/Magnesium Susp 30 Ml Udc) 30 ml PO Q4H PRN PRN Reason: GI Upset Stop: 06/01/20 06:00 Bismuth Subsalicylate (Bismuth Subsalicylate Per Ml Omnicell Charge) 15 ml PO PRN PRN PRN Reason: Loose Stool Stop: 06/01/20 06:00 Hydroxyzine HCl (Hydroxyzine Hcl 25 Mg Tab) 50 mg PO HSZ PRN PRN Reason: Insomnia Stop: 06/01/20 06:00 Hydroxyzine HCl (Hydroxyzine Hcl 25 Mg Tab) 25 mg PO Q4H PRN PRN Reason: Anxiety Stop: 06/01/20 06:00 Magnesium Hydroxide (Magnesium Hydroxide Susp 30 Ml Udc) 30 ml PO DAILY PRN PRN Reason: Constipation Stop: 06/01/20 06:00 Sodium Chloride (Sodium Chloride 0.65% Na Soln 45 Ml ([place])) 1 - 2 sprays NA PRN PRN PRN Reason: Nasal Dryness/Congestion Stop: 06/01/20 06:00 Sulfasalazine (Sulfasalazine 500 Mg Tablet) 500 mg PO QID BURT Stop: 06/01/20 12:59 Last Admin: 05/05/20 08:59 Dose: 500 mg Documented by: Mental Health & Subst Abuse Tx Therapist Name of Therapist: Natalie Smith Therapist's Date of Therapist Appointment: 05/11/20 Time of Therapist Appointment: 10:00am Therapy Appointment Comment: Search [facility] email link for Zoom and paper work. Endbander Name of Endbander: [facility] Phone Number for Endbander: [phone] Date of Appointment with Endbander: 05/07/20 Time of Appointment with Endbander: 1:30 p.m. Case Management Appointment Comment: [facility] will call you for the appointment Post Discharge Appointments Primary Care Physician Name Of Family Doctor: [facility] Primary Care Provider Appointment Comment: [facility] Contact Information Discharge Discharge Address: [address] [place] [address] (1) Depression Depression Type: reactive depression Qualified Code(s): F32.9 - Major depressive disorder, single episode, unspecified
--- NOTE | 2020-05-06 09:31 | Psychiatric Progress Note ---
Date of Service May 06, 2020 Impression / Recommendations Impression 19 yo male with a history of depressed mood "on and off" for months, adjustment issues on return to campus due to social anxiety and Covid fears (doesn't want to make grandparents sick) culminating in binge drinking triggered by interaction with ex-girlfriend. He reportedly drank a large volume of water, seemingly to negate tox results, prior to coming to ED for SI with plan. Pt has consistently declined opportunity to trial an antidepressant medication, with reported preference to focus on therapy initially. Family meeting was held with parents, and staff assisted patient in an additional meeting with roommate to discuss mental health symptoms, disclose hospitalization, and review additional support requested on discharge. Pt remains at risk of decompensation and acute self-harm if discharged prematurely. (1) Depression: 05/02 - The patient was [facility] on q15 min checks (behavioral with suicide precautions) for safety. The patient will participate in group, recreational, and milieu therapies and will be offered additional individual and family sessions as clinically appropriate. Patient states he is willing to consider outpatient therapy services but "I don't want to take pills". 05/03 - Pt continues to report he is not interested in psychotropic medications - we discussed numerous examples of reasons this conversation may warrant further discussion (worsening mood/anxiety, feeling therapy is not progressing, recurrence of SI, etc). Pt verbalized understanding - Refer to [facility] for therapy - Schedule family meeting with parents - Schedule appointment with [facility] 05/04 - Continue as above. Pt continues to decline medications to target mood - Pt reports benefit from group programming - Schedule family meeting with parents - [facility] intake phone call today 05/05 - Continue as above - Family meeting with parents today - Pt requesting a separate meeting with roommates to discuss his recent mental health struggles and coordinate supports - [facility] intake call completed yesterday, waiting for formal appointment to be scheduled 05/06 - Continue as above, patient reporting improvement in mood - Pt had continued to verbalize passive SI last evening, parents had reported concerns about discharge - In addition to family meeting yesterday, staff supported patient in a phone meeting with his roommate to discuss his hospitalization, mental health symptoms, and support on discharge (2) Hyponatremia: doubt true psychogenic polydipsia as not persistent, repeat sodium this pm and monitor for need for fluid restriction. 05/03--repeat sodium improved at 136, patient observed to be eating and drinking appropriately (3) Ulcerative (chronic) enterocolitis: continue home sulfasalazine regimen Risk Factors Assessment Do You Have Access To A Gun?: No Protective Factors Assessment Employed: No Interval History Identifying Information RAFAEL VILLEGAS is a 19-year-old M, [employer] go from [facility]) who just returned to campus to live with roommates, no formal psych hx, and was admitted on 05/02/20 06:01 on a 201 voluntary commitment for SI. Chief Complaint "Um, today is going slow..." Review of Systems Notes Constitutional: denied Cardiovascular: denied Respiratory: denied Gastrointestinal: ongoing GI symptoms related to UC diagnosis, occasional nausea Neurological: denied Psychiatric: denies symptoms other than stated above Total of at least 10 systems reviewed, pertinent positives as above and in HPI. Sleep Information Total Hours of Sleep: 7 Sleep Comments: pt on q-15 minute checks Meal Information Percent Meal Consumed - Breakfast: 100 Percent Meal Consumed - Lunch: 100 Percent Meal Consumed - Dinner: 90 Nutrition Comment: pt. asleep; meal dated, labeled and refrigerated Subjective Subjective Patient was seen & assessed and interval progress reviewed with nursing and social work. Staff report the patient has continued to participate in group programming. He did admit to ongoing passive SI, which was a concern discussed during meeting with parents yesterday. Parents verbalized concern for premature discharge. Social work reports that patient was very anxious during the family meeting and self-soothing by chewing on his t-shirt and occasionally pulling his shirt over his eyes. Pt was seen today to assess progress since admission. Pt states his day has been "slow", but admits he is feeling "relieved and more relaxed." Pt states that his recent phone calls have contributed to improved mood and feeling more calm. Regarding the family meeting, the patient states "I brought up problems I didn't even realize were problems until I said them." In particular, he shared with his father that he would like more contact and feels their relationship is distant at times. Pt states his father received this well and was open to more frequent communication. Pt also reported feeling relieved after a phone call with his roommate "to explain how I been acting for the last few months." Pt states he felt his roommate was accepting, but does admit he is still "building the friendship" and is not sure this would be the first point of contact for support. Pt did admit to feeling "nervous for relapse." We discussed his efforts in developing a safety plan and the importance of involving supports. Pt denies SI today and is hopeful for discharge tomorrow. He continues to decline medications to target mood and anxiety. Physical Exam Psychiatric Orientation: alert, oriented x 3 and cooperative Apperance: appropriately dressed, appropriately groomed and appeared stated age Eye Contact: good eye contact Motor Behavior: steady gait and station and no abnormal motor movements Speech: normal rate/rhythm/volume of speech Affect: + anxious affect (consistently appearing shy/timid) Mood: + anxious mood ("I'm just nervous for relapse") Thought Process: goal directed thought process, clear/coherent thought process and thought association intact Thought Content: reality based without delusions; no hopelessness and no worthlessness Suicidal Thoughts: denies suicidal thoughts and denies suicidal intent Homicidal Thoughts: denies homicidal thoughts Hallucinations: no auditory hallucinations and no visual hallucinations Cognition: recent memory grossly intact, attention grossly intact and language grossly intact Estimated Intelligence: consistent with education level Insight: + fair insight Judgement: + fair judgement Vital Signs (Past 24 Hours) Last Vital Signs Temp 36.5 C 05/06/20 07:07 Pulse 73 05/06/20 07:08 Resp 18 05/06/20 07:07 BP 116/71 05/06/20 07:08 Pulse Ox 97 05/02/20 06:22 Results & Data ([facility]) Current Inpatient Medications Current Inpatient Medications: Current Inpatient Medications Acetaminophen (Acetaminophen 325 Mg Tab) 650 mg PO Q4H PRN PRN Reason: Headache or Minor Fever Stop: 06/01/20 06:00 Al Hydrox/Mg Hydrox/Simethicone (Aluminum/Magnesium Susp 30 Ml Udc) 30 ml PO Q4H PRN PRN Reason: GI Upset Stop: 06/01/20 06:00 Last Admin: 05/05/20 13:24 Dose: 30 ml Documented by: Bismuth Subsalicylate (Bismuth Subsalicylate Per Ml Omnicell Charge) 15 ml PO PRN PRN PRN Reason: Loose Stool Stop: 06/01/20 06:00 Hydroxyzine HCl (Hydroxyzine Hcl 25 Mg Tab) 50 mg PO HSZ PRN PRN Reason: Insomnia Stop: 06/01/20 06:00 Hydroxyzine HCl (Hydroxyzine Hcl 25 Mg Tab) 25 mg PO Q4H PRN PRN Reason: Anxiety Stop: 06/01/20 06:00 Magnesium Hydroxide (Magnesium Hydroxide Susp 30 Ml Udc) 30 ml PO DAILY PRN PRN Reason: Constipation Stop: 06/01/20 06:00 Sodium Chloride (Sodium Chloride 0.65% Na Soln 45 Ml ([place])) 1 - 2 sprays NA PRN PRN PRN Reason: Nasal Dryness/Congestion Stop: 06/01/20 06:00 Sulfasalazine (Sulfasalazine 500 Mg Tablet) 500 mg PO QID BURT Stop: 06/01/20 12:59 Last Admin: 05/05/20 21:01 Dose: 500 mg Documented by: Mental Health & Subst Abuse Tx Therapist Name of Therapist: Natalie Smith Therapist's Date of Therapist Appointment: 05/11/20 Time of Therapist Appointment: 10:00am Therapy Appointment Comment: Search [facility] email link for Zoom and paper work. [employer] Implement Engine Mechanic Name of Farm Implement Engine Mechanic: [facility] Phone Number for Farm Implement Engine Mechanic: [phone] Date of Appointment with Farm Implement Engine Mechanic: 05/07/20 Time of Appointment with Farm Implement Engine Mechanic: 1:30 p.m. Case Management Appointment Comment: [facility] will call you for the appointment Post Discharge Appointments Primary Care Physician Name Of Family Doctor: [facility] Primary Care Provider Appointment Comment: [facility] Contact Information Discharge Discharge Address: [address] [place] [address] (1) Depression Depression Type: reactive depression Qualified Code(s): F32.9 - Major depressive disorder, single episode, unspecified
[2020-05-06] MEDS: sulfaSALAzine 500 MG TABLET PO SCH ×4 (09:51→20:37)
[2020-05-07] MEDS: sulfaSALAzine 500 MG TABLET PO SCH (09:16)
--- NOTE | 2020-05-07 13:44 | Discharge Summary ---
Date of Service May 07, 2020 History of Present Illness Horace states that he started to have passive SI while intoxicated, can't quantify how much he drank, progressed to plan to stab or cut himself. He feels like he can behave "impulsively" when upset, when asked to elaborate his example was "giving up on a class when I probably could have pulled a decent grade". He admittedly over-thinks things and has chronic self-deprecating thoughts. He expresses social anxiety, the constant feeling that he doesn't fit in or that others are judging him. He doesn't feel as close to friends anymore and says "I'm different". An example being that he likes to surf and most of his friends prefer basketball. He had described some irritability but no evidence of don or explosiveness, "I wouldn't want to break my stuff". He doesn't note consistent changes in his sleep/appetite/or energy. With regards to transition back to campus, sounds like he did not do well in a summer course (Calc 2) but mainly because 2 years since he took calculus. He relates well overall to his parents who are still in town after dropping him off. He states he didn't reach out to them as wants to be more independent and mother can be overprotective. He alluded to using MJ earlier in the evening and states that he has drank "a bunch of water before" when intoxicated to sober up. He denies excessive water drinking per se. He admits to "chugging" 4-5 Truly's and then 10 bottled capps prior to coming to ED. States that he wasn't feeling better and was worried he might act on those thoughts. Sodium in ED was 128. Physical Exam Psychiatric Orientation: alert, oriented x 3, oriented to person and cooperative Apperance: appropriately dressed, appropriately groomed and appeared stated age Eye Contact: + fair eye contact Motor Behavior: + tremor (Fine motor tremor throughout, consistent with anxiety.) Speech: normal rate/rhythm/volume of speech Affect: euthymic affect "Much better. Anxious." Thought Process: goal directed thought process, linear/logical thought process and clear/coherent thought process Thought Content: reality based without delusions Suicidal Thoughts: denies suicidal thoughts Homicidal Thoughts: denies homicidal thoughts Hallucinations: no auditory hallucinations Cognition: recent memory grossly intact, remote memory grossly intact, attention grossly intact and language grossly intact Estimated Intelligence: + above average estimated intelligence Insight: + fair insight Judgement: + fair judgement Vital Signs (Past 24 Hours) Last Vital Signs Temp 36.6 C 05/07/20 09:25 Pulse 82 05/07/20 09:25 Resp 16 05/07/20 09:25 BP 110/70 05/07/20 09:25 Pulse Ox 97 05/07/20 09:25 Principal Diagnosis Depression Psychiatric Data During the course of hospitalization the patient was offered various modalities of psychiatric treatment and education. These included individual, group, activity/recreational, and milieu therapy. In addition, we offered psychiatric medication treatment, but the patient declined because he said that he would prefer to overcome his emotional distress and depression through talk therapy. At the same time, after discussing medication treatment with his peers on the unit, and after hearing from a number of individuals that they had had similar problems and that medications can help, especially in combination with psychotherapy, the patient was able to convincingly say that he wanted to "keep an open mind" about pharmacologic interventions and assures us that he will mood to that step should he not be able to achieve and maintain recovery through talk therapy. He also is willing to consider "as needed" medications for problems such as public speaking anxiety and test anxiety, and he asked several questions about various medications that were mentioned, such as propranolol. The patient participated very actively in the milieu, and took advantage of the various group programs that were offered. He also participated actively in individual group and participated in a telephonic family meeting. The patient also reports that he was able to practice some of what he learned in treatment on the unit when it comes to opening up to other people and avoiding attempting to be "perfect" in the eyes of other people. More specifically, he reports that he was able to talk to some of his friends about the fact that he had been having suicidal thoughts and came into the hospital for treatment. He also says that he was able to talk to his parents, privately, about several of the issues and concerns that he is had but has previously sought not to address. There remains some question about the patient's commitment to college, and he does still seem to be somewhat ambivalent about his decision to seek a bachelor's degree. 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 The patient consistently reported that he was not having any suicidal ideations during the stay. He also says that he never had any actual suicidal intent and sought treatment primarily because the ego-dystonic thoughts of suicide that he was experiencing were alien and distressing. The patient was able to develop a community safety plan that will involve his telling friends, his future therapist, and/or his parents if thoughts of suicide return. The patient also tells us that his experience on the behavioral health unit at [facility] was "really positive," and that he would feel quite comfortable returning to the hospital should the need arise in the future. The treatment team met on the day of discharge and is in agreement that the patient's condition has improved to the degree that he can now be safely and effectively return to the community for ongoing treatment. Day of Discharge Assessment On the day of discharge, the patient was found to be pleasant, cooperative, and engaged. His speech was spontaneous and delivered at a normal rate and volume. Patient periodically had slight, fine tremors of both hands and lower extremities during the interview, and he explained that he is feeling somewhat anxious about facing his friends when he goes back to [facility] following dischargewithin the context of their awareness that he was psychiatrically hospitalized. (The patient's sense that he needs to be "perfect" for other people has been a focus of treatment during the hospital stay.) He reports that his mood is "a lot better," but he does acknowledge that he is somewhat anxious. He also acknowledges that he can be made anxious fairly easily, and, for example, becomes quite anxious that he has to speak in public. He also becomes anxious sometimes before tests, or when called on in class. The patient's affect is fairly businesslike, but he smiles and laughs appropriately during the discharge assessment. Patient's thought processes demonstrated tight associations. His thought content is devoid of any psychotic features. As above, the patient does have some insight into the fact that he has tended to be very withholding, in terms of what he refers to as his "true emotions," and that this reluctance is, at least in part, born of a desire on his part to be seen as strong or "perfect." Accordingly, he is able to talk about this as an issue and notes that his plan is to continue to work on this issue in therapy on an outpatient basis after he leaves the hospital. There is no evidence of any perceptual disturbances. The patient's intelligence is estimated as above average. The patient's insight and judgment are at least fair. He strongly and convincingly denies any ongoing thoughts of suicide. He also reiterates that, i n retrospect, he is aware that he did not have intent to act on his suicidal thoughts. Patient is future oriented, talks about his plans to finish college, and he also talks about being eager to get back together with his friends. He has no homicidal thoughts. He also says that he holds no ill will against his former girlfriend, although he does say that he believes that she intentionally embarrassed him out of spite. Transition of Care Transition Of Care Record: was reviewed with the patient Advance Directives Advance Directives Information Provided: Yes Advance Directives: No Mental Health Advance Directive: No Advance Directives on File: No Living Will: No Power of Manager Maritime: No Advance Directives Reason:: Declines as Mental Health Visit. Risk Factors Assessment Do You Have Access To A Gun?: No Protective Factors Assessment Employed: No Tobacco Cessation at Discharge Tobacco Cessation Medication Prescribed at Discharge: Not Applicable/Non-Smoker Discharge Data Lab Results 05/02/20 05/02/20 05/02/20 02:38 02:38 03:13 WBC 11.25 H RBC 4.35 L Hgb 13.0 L Hct 38.0 L MCV 87.4 MCH 29.9 MCHC 34.2 RDW Std Deviation 42.3 RDW Coeff of Nichole 13.1 Plt Count 218 MPV 10.3 Immature Gran % (Auto) 0.2 Neut % (Auto) 85.4 Lymph % (Auto) 9.8 Frontier % (Auto) 4.5 Eos % (Auto) 0.0 Baso % (Auto) 0.1 Neut # (Auto) 9.61 H Lymph # (Auto) 1.10 L Frontier # (Auto) 0.51 Eos # (Auto) 0.00 Baso # (Auto) 0.01 Immature Gran # (Auto) 0.02 Sodium Potassium Chloride Carbon Dioxide Anion Gap BUN Creatinine Est Cr Clr Drug Dosing Est GFR ( Amer) Est GFR (Non-Af Amer) BUN/Creatinine Ratio Glucose Calcium Total Bilirubin AST ALT Alkaline Phosphatase Total Protein Albumin Globulin Albumin/Globulin Ratio TSH Urine Color Yellow Urine Appearance Clear Urine pH 5.0 Ur Specific Selden 1.023 Urine Protein Negative Urine Glucose (UA) Negative Urine Ketones Trace H Urine Blood Negative Urine Nitrite Negative Urine Bilirubin Negative Urine Urobilinogen Negative Ur Leukocyte Esterase Negative Salicylates Urine Opiates Screen Neg Ur Methadone, Qual Neg Acetaminophen Urine Barbiturates Neg Ur Phencyclidine (PCP) Neg U Amphetamin/Meth Scrn Neg MDMA (Ecstasy) Screen Neg U Benzodiazepines Scrn Neg Ur Cocaine Metabolite Neg U Marijuana (THC) Screen Neg Ethyl Alcohol mg/dL 05/02/20 05/02/20 05/02/20 03:13 03:13 03:13 WBC RBC Hgb Hct MCV MCH MCHC RDW Std Deviation RDW Coeff of Nichole Plt Count MPV Immature Gran % (Auto) Neut % (Auto) Lymph % (Auto) Frontier % (Auto) Eos % (Auto) Baso % (Auto) Neut # (Auto) Lymph # (Auto) Frontier # (Auto) Eos # (Auto) Baso # (Auto) Immature Gran # (Auto) Sodium 128 L Potassium 3.4 L Chloride 96 L Carbon Dioxide 24 Anion Gap 8.0 BUN 14 Creatinine 0.82 Est Cr Clr Drug Dosing 129.5 Est GFR ( Amer) 147.5 Est GFR (Non-Af Amer) 127.3 BUN/Creatinine Ratio 17.3 Glucose 102 H Calcium 8.5 Total Bilirubin 0.7 AST 30 ALT 34 Alkaline Phosphatase 117 Total Protein 7.5 Albumin 4.0 Globulin 3.5 Albumin/Globulin Ratio 1.1 TSH 1.230 Urine Color Urine Appearance Urine pH Ur Specific Selden Urine Protein Urine Glucose (UA) Urine Ketones Urine Blood Urine Nitrite Urine Bilirubin Urine Urobilinogen Ur Leukocyte Esterase Salicylates < 1.7 L Urine Opiates Screen Ur Methadone, Qual Acetaminophen < 2 L Urine Barbiturates Ur Phencyclidine (PCP) U Amphetamin/Meth Scrn MDMA (Ecstasy) Screen U Benzodiazepines Scrn Ur Cocaine Metabolite U Marijuana (THC) Screen Ethyl Alcohol mg/dL < 3.0 05/02/20 12:50 WBC RBC Hgb Hct MCV MCH MCHC RDW Std Deviation RDW Coeff of Nichole Plt Count MPV Immature Gran % (Auto) Neut % (Auto) Lymph % (Auto) Frontier % (Auto) Eos % (Auto) Baso % (Auto) Neut # (Auto) Lymph # (Auto) Frontier # (Auto) Eos # (Auto) Baso # (Auto) Immature Gran # (Auto) Sodium 136 D Potassium 3.6 Chloride 102 Carbon Dioxide 27 Anion Gap 7.0 BUN Creatinine Est Cr Clr Drug Dosing Est GFR ( Amer) Est GFR (Non-Af Amer) BUN/Creatinine Ratio Glucose Calcium Total Bilirubin AST ALT Alkaline Phosphatase Total Protein Albumin Globulin Albumin/Globulin Ratio TSH Urine Color Urine Appearance Urine pH Ur Specific Selden Urine Protein Urine Glucose (UA) Urine Ketones Urine Blood Urine Nitrite Urine Bilirubin Urine Urobilinogen Ur Leukocyte Esterase Salicylates Urine Opiates Screen Ur Methadone, Qual Acetaminophen Urine Barbiturates Ur Phencyclidine (PCP) U Amphetamin/Meth Scrn MDMA (Ecstasy) Screen U Benzodiazepines Scrn Ur Cocaine Metabolite U Marijuana (THC) Screen Ethyl Alcohol mg/dL Hospital Course (1) Depression: 05/02 - [facility] on q15 min checks (behavioral with suicide precautions) for safety. The patient will participate in group, recreational, and milieu therapies and will be offered additional individual and family sessions as clinically appropriate. Patient states he is willing to consider outpatient therapy services but "I don't want to take pills". 05/03 - Pt continues to report he is not interested in psychotropic medications - we discussed numerous examples of reasons this conversation may warrant further discussion (worsening mood/anxiety, feeling therapy is not progressing, recurrence of SI, etc). Pt verbalized understanding - Refer to [facility] for therapy - Schedule family meeting with parents - Schedule appointment with [facility] 05/04 - Continue as above. Pt continues to decline medications to target mood - Pt reports benefit from group programming - Schedule family meeting with parents - [facility] intake phone call today 05/05 - Continue as above - Family meeting with parents today - Pt requesting a separate meeting with roommates to discuss his recent mental health struggles and coordinate supports - [facility] intake call completed yesterday, waiting for formal appointment to be scheduled 05/06 - Continue as above, patient reporting improvement in mood - Pt had continued to verbalize passive SI last evening, parents had reported concerns about discharge - In addition to family meeting yesterday, staff supported patient in a phone meeting with his roommate to discuss his hospitalization, mental health symptoms, and support on discharge 05/07 -Patient continues to report that his mood is improved. He admits to being somewhat anxious about discharge, and says that his anxiety primarily has to do with getting back together with his friends within the context of them being aware that he has been psychiatrically hospitalized. We were able to talk about the importance of his friends understanding that he may need some additional support, and he agreed that he understands this this concept and also says that he knows that his friends have signals that they are ready and willing to help should the need arise. -This today we talked a little bit about the patient's sense that he has been feeling somewhat "trapped" by his current life circumstances. The patient notes that he had been entertaining thoughts of "escaping" [place], and perhaps hosting a surfing blog as a way of living. However, he is aware that this is not reasonable, it would make no sense for him to not at least complete college and have a bachelor's degree for the future when he might not still be able to surf, and he was also aware that his parents have cosigned for his college loans and he knows it would be responsible to have "stuck" them with having to be responsible for paying the loans back if he is not able to graduate and find a well-paying job. -The patient was able to talk today more about the distress he felt when he encountered his girlfriend at a birthday green party. He acknowledges that his former girlfriend had not invited him to the green party and that he had attended the green party with a mutual friend without the former girlfriend being aware that he was fine to be at the green party. The patient notes that he had broken up with a girlfriend approximately 2 years ago, and she had not taken the break-up particularly well. When she came into the room where the green party was being held and she saw the patient sitting there she reportedly said, very loudly, "What the fuck are you doing here!?" And walked off. The patient said that he was extremely humiliated because this was done in front of a number of people that he knew, and he believes that she engaged in the behavior intentionally to embarrass him and "get even" with him for breaking up with her. I asked if he was likely to have further difficulty should he encounter her at school (they are now both [employer] students) and he said that he will not, and that his plan is to simply avoid contact with her. -Patient strongly and convincingly denies suicidal ideation. He notes that he feels that he has developed improved coping strategies and that the thoughts of suicide were frightening to him and ego-dystonic. The patient notes that 1 of the things that he is learned is that he has to do a better job of "opening up" to other people about his feelings. He notes that during the stay he was able to talk to his father about certain feelings that he had had over the years that he had pretended not to have, such as feelings of rejection because the father works very hard and was often not around. -The patient commits to individual psychotherapy, and says that he has developed an open mind to the idea of antidepressant medications. He acknowledges that his depression is recurrent and he also is aware that antidepressant medications can help. He explains, however, that he really wants to try psychotherapy firstin part because he found psychotherapy in the hospital to be so helpful. (2) Hyponatremia: doubt true psychogenic polydipsia as not persistent, repeat sodium this pm and monitor for need for fluid restriction. 05/03--repeat sodium improved at 136, patient observed to be eating and drinking appropriately (3) Ulcerative (chronic) enterocolitis: continue home sulfasalazine regimen Mental Health & Subst Abuse Tx Therapist Name of Therapist: SUDARSHAN-Tip Smith Therapist's Date of Therapist Appointment: 05/11/20 Time of Therapist Appointment: 10:00am Therapy Appointment Comment: Search [facility] email link for Zoom and paper work. Therapist Release of Information: Obtained, Reviewed and Signed State Wildlife Officer Name of State Wildlife Officer: [facility] Phone Number for State Wildlife Officer: [phone] Date of Appointment with State Wildlife Officer: 08/28/20 Time of Appointment with State Wildlife Officer: 1:30 p.m. Case Management Appointment Comment: Mello will call you for the appointment State Wildlife Officer Release of Information: Obtained, Reviewed and Signed Post Discharge Appointments Primary Care Physician Name Of Family Doctor: [facility] Primary Care Provider Appointment Comment: [facility], as needed Smoking Cessation Counseling Tobacco Cessation Medication Prescribed at Discharge: Not Applicable/Non-Smoker Contact Information Discharge Discharge Address: [address] [place] [address] Discharge Plan Discharge Items Patient Disposition: Home - Self-Care Reason For Visit: UNSPECIFIED DEPRESSIVE DISORDER Discharge Diagnosis: Unspecified Depressive Disorder Activity: Resume your previous activity Non-emergency contact: Therapist Call non-emergency contact if: your symptoms worsen Follow-up/Referrals: PCP,NO [Primary Care Provider] - Diet: Regular Addtl Attending Provider Instructions: SPECIAL CARE INSTRUCTIONS: 1. Follow through with your scheduled aftercare appointments. If unable to keep an appointment, please call to reschedule. 2. Take your medication only as prescribed. Medication should not be changed or stopped without the approval of your doctor. In the event of worsening symptoms or concerns about side effects, contact your doctor immediately. 3. Utilize new healthy coping skills, anger management skills, and stress management skills learned during your hospitalization. Journal feelings an d process them with a support person. Identify stressors or situations that may result in relapse, deterioration or inappropriate behaviors and develop a plan to deal with those issues. 4. If your coping skills are ineffective and you are in crisis, contact your outpatient providers for direction. If unable to reach your providers, please call the CAN HELP LINE AT or go to the closest Emergency Room. 5. Avoid alcohol and un-prescribed drugs. 6. You have been provided with the Mental Health Advance Directives Pamphlet for your review. AFTERCARE APPOINTMENTS: * Please call your insurance company prior to your scheduled appointment to confirm your aftercare providers are covered. Take your insurance information to your appointments. WHO TO CALL AND WHEN: Medical Emergencies: For questions or emergencies related to your hospital stay, please contact the Inpatient Behavioral Health Unit at [phone]. A compressor service technician is on-call 02/04 for the Behavioral Health Unit for emergencies At any time you feel your situation is an emergency, you may also call 911 immediately. Your Doctors Instructions noted above were prepared by provider Artie Carcamo MD. Pending Studies at Discharge: No Stand-Alone Forms: [facility], Smoking Cessation, Suicide Prevention Resources Medications and DC Order Prescriptions: Continued sulfasalazine 500 mg PO QID RF: 0 Discharge Orders: Discharge Order (Routine); Ordered 05/07/20 Ordered By: Artie Carcamo Admission Data Admit Date/Time: 05/02/20 06:01 Attending Provider: Ariela Abraham Admit Provider: Anais Pat Primary Care Provider: PCP,NO Other Interventions: Discharge Summary Assessment (RN) Last Done: 05/07/20 09:25 PSY Interdisciplinary Discharge Planning Last Done: 05/07/20 10:12 [place] [address] D/C day mgmt > 30 min Patient Type Established History Expanded Problem Focused Exam Expanded Problem Focused Medical Decision Making Moderate Complexity Diagnoses Depression F32.9 Depression Type: reactive depression Hyponatremia E87.1 Ulcerative (chronic) enterocolitis K51.00 Time Spent (min) 70
== END 2020-05-07 10:25 | disposition home or self-care (01) | DRG 881 ==
LOC: ED 02:27 → 3S 06:01 → SUATTDRO 06:01 → 3S 06:37